=== PATIENT | male | born 1995 | race Caucasian/White ===

== ENCOUNTER 2017-01-27 12:26 | Emergency (ER) | payer OTHER ==
[~2017-01-27] VITALS: Ht 188 cm; Wt 96.8 kg
[2017-01-27] MEDS ORDERED: KETOROLAC 30 MG/1 ML IVPush ONE (13:30)
[2017-01-27] MEDS ORDERED: DIPHENHYDRAMINE 50 MG/ML, 1ML IVPush ONE (13:30)
[2017-01-27] MEDS ORDERED: SODIUM CHLORIDE FLUSH 10ML SYR IVF ONE (13:30)
[2017-01-27] MEDS ORDERED: SODIUM CHLORIDE 0.9% 1,000ML IVBOLUS ONE (13:30)
[2017-01-27] MEDS ORDERED: METOCLOPRAMIDE 5 MG/ML, 2ML IVPush ONE (13:30)
[2017-01-27] MEDS ORDERED: KETOROLAC 30 MG/1 ML ONE (13:38)
[2017-01-27] MEDS ORDERED: DIPHENHYDRAMINE 50 MG/ML, 1ML ONE (13:38)
[2017-01-27] MEDS ORDERED: METOCLOPRAMIDE 5 MG/ML, 2ML ONE (13:38)
[2017-01-27 13:55] LABS: HEMOGLOBIN 15.1 g/dL (13.7-18.0); WHITE BLOOD COUNT 8.9 x10^3/uL (4.5-13.2)
[2017-01-27 14:08] LABS: BLOOD UREA NITROGEN 12 mg/dL (7-18)
[2017-01-27 15:27] VITALS: BP 112/68
== END 2017-01-27 16:03 | disposition home or self-care (01) ==
LOC: ED 15:21
DX: G43.019 Migraine without aura, intractable, without status migrainosus (principal)
CPT/HCPCS: 36415; 80048; 82040; 85025; 96361; 96374; 96375; 99285; J1200; J1885; J2765; J7030